=== PATIENT | male | born 1975 | race Two or more races ===

== ENCOUNTER 2017-03-06 13:02 | Emergency (ER) | payer SELFPAY ==
[~2017-03-06] VITALS: Ht 182.9 cm; Wt 68.0 kg
[2017-03-06 13:16] VITALS: BP 105/69
== END 2017-03-06 15:13 | disposition home or self-care (01) ==
LOC: ER 13:07
DX: M25.572 Pain in left ankle and joints of left foot (principal); M79.672 Pain in left foot; W13.2XXA Fall from, out of or through roof, initial encounter; Y93.39 Activity, other involving climbing, rappelling and jumping off; Y92.89 Other specified places as the place of occurrence of the external cause; Y99.8 Other external cause status
CPT/HCPCS: 73590; 73610; 99284; A4606; Z7610

== ENCOUNTER 2017-03-15 19:39 | Emergency (ER) | payer OTHER ==
[~2017-03-15] VITALS: Ht 175.3 cm; Wt 74.8 kg
[2017-03-15 19:39] VITALS: BP 123/79
--- NOTE | 2017-03-15 21:15 | NUR ---
SHORT LEG SPLINT APPLIED AND GAIT TRAINING COMPLETED BY MAGALI GALDAMEZ
== END 2017-03-15 21:16 | disposition home or self-care (01) ==
LOC: ER 19:40
DX: S92.002A Unspecified fracture of left calcaneus, initial encounter for closed fracture (principal); F17.200 Nicotine dependence, unspecified, uncomplicated; X50.1XXA Overexertion from prolonged static or awkward postures, initial encounter; Y93.39 Activity, other involving climbing, rappelling and jumping off; Y92.89 Other specified places as the place of occurrence of the external cause; Y99.8 Other external cause status
CPT/HCPCS: 29515; 73610; 73630; 99284; 99406; A4606; Z7610